=== PATIENT | female | born 1965 | race Caucasian/White ===

== ENCOUNTER 2018-09-22 13:03 | Emergency (ER) | payer OTHER ==
[2018-09-22] MEDS ORDERED: KETOROLAC 30 MG INJ IM (20:02)
[2018-09-22] MEDS: KETOROLAC 30 MG INJ IV (20:39)
[2018-09-22] MEDS: ALPRAZOLAM 0.25 MG TAB PO (20:39)
== END 2018-09-22 21:28 | disposition home or self-care (01) ==
LOC: E/R 13:03
DX: I10 Essential (primary) hypertension (principal); R20.2 Paresthesia of skin; E66.9 Obesity, unspecified; Z68.41 Body mass index [BMI] 40.0-44.9, adult
CPT/HCPCS: 70450; 96374; 99285-25